=== PATIENT | male | born 1995 | race Caucasian/White ===

== ENCOUNTER 2018-02-14 18:08 | Emergency (ER) | payer SELFPAY ==
--- NOTE | 2018-02-14 18:21 | PD ---
HPI Chief Complaint: Alcohol/Drug Intoxication Time Seen by Provider: 18:14 Travel History International Travel<30 days: No Contact w/Intl Traveler<30days: No History of Present Illness HPI 22y male presents emergency department via [facility] after being found in the stairwell of his hotel. Patient says he was with his friend drinking alcohol when [facility] picked him up. [place]. He denies head trauma, neck trauma, falls, other illicit drug use. He denies chronic medical issues medication use. He has no complaints today and would like to leave. [facility] Social History Tobacco Use: Yes Review of Systems Except as stated in HPI: all other systems reviewed are Neg Physical Exam Narrative GENERAL: Well-developed, well-nourished in no apparent distress SKIN: Focused skin assessment warm/dry. Slight sunburn to extremities, chest, back HEAD: Atraumatic. Normocephalic. EYES: Pupils equal and round. No scleral icterus. No injection or drainage. ENT: No nasal bleeding or discharge. Mucous membranes pink and moist. NECK: Trachea midline. No JVD. No midline tenderness CARDIOVASCULAR: Regular rate and rhythm. No murmur appreciated. RESPIRATORY: No accessory muscle use. Clear to auscultation. Breath sounds equal bilaterally. GASTROINTESTINAL: Abdomen soft, non-tender, nondistended. MUSCULOSKELETAL: No obvious deformities. No clubbing. No cyanosis. No edema. NEUROLOGICAL: Awake and alert. No obvious cranial nerve deficits. Motor grossly within normal limits. Slurred speech. No facial drooping PSYCHIATRIC: Appropriate mood and affect; says he wants to leave Data Data Last Documented VS Vital Signs Date Time Temp Pulse Resp B/P (MAP) Pulse Ox O2 Delivery O2 Flow Rate FiO2 02/14/18 19:06 98.8 103 18 151/98 (115) 98 Room Air Orders Orders Ed Discharge Order (02/14/18 18:58) MDM Medical Decision Making Medical Screen Exam Complete: Yes Emergency Medical Condition: Yes Differential Diagnosis alcohol intoxication, head trauma, drug intoxication Narrative Course 22-year-old male apparently intoxicated presents emergency department via [facility] after being found in a stairwell, according to [facility]. Patient states that he was in his room when [facility]. Patient does not know why they brought him here. He has no complaints today. Denies head trauma, back trauma, neck trauma. He denies any weakness. Denies illicit drug use. Vital signs are stable. Physical exam findings unremarkable except for an intoxicated 22-year-old male. No evidence of trauma. No evidence of neuro deficits. Based on the history and physical today, it appears that patient was intoxicated when he was picked up by [facility]. There is no evidence of trauma today. Patient adamantly denies any trauma and would like to leave. I do not believe that imaging studies or labs are necessary today. The nurse called the friend who said he went over to pick him up from the emergency department today. Patient ambulated out of the emergency department without issue. Diagnosis Primary Impression: Alcohol intoxication Qualified Codes: F10.920 - Alcohol use, unspecified with intoxication, uncomplicated Referrals: Primary Care Physician Additional Instructions: Avoid public intoxication Disposition: 01 DISCHARGE HOME Condition: Stable Viviana Severino Feb 14, 2018 18:21
[2018-02-14 19:06] VITALS: BP 151/98; PULSE 103; RESP 18; TEMP 98.8; O2SAT 98
== END 2018-02-14 19:08 | disposition home or self-care (01) ==
LOC: NEPC 18:08
DX: F10.920 Alcohol use, unspecified with intoxication, uncomplicated (principal)
CPT/HCPCS: 99283